=== PATIENT | female | born 1960 | race Caucasian/White ===

== ENCOUNTER → 2017-10-27 | Outpatient (CLI) | payer BC ==
--- NOTE | 2017-10-31 12:21 | USB ---
Reason for exam: additional evaluation requested from prior study. History: Patient is postmenopausal. Family history of breast cancer in sister at age 40. Benign US breast aspiration single LT of the left breast, May 25, 2015. Left Breast Aspiration, July 2012. Physical Findings: Nurse Summary:all soft, movable (nurse kp). US Breast LT Left breast ultrasound includes all four quadrants, the retroareolar region and axilla. Finding demonstrates a 1.7 x 1.3 x 0.9cm oval, lobular, mixed lesion, stable at 7 o'clock (in 2014 it measures 1.3 x 1.2 x 0.6cm, reinformed but with overall stable appearance, benign) and a 0.4 x 0.2 x 0.4cm oval lesion too small to characterize at 8 o'clock. These results were verbally communicated with the patient on 10/31/17. ASSESSMENT: Probably benign, BI-RAD 3 RECOMMENDATION: Follow-up diagnostic mammogram of the left breast in 6 months.
== END | disposition home or self-care (01) ==
LOC: RADUSWWP 14:12
PROVIDERS: ATTEND Family Medicine
DX: R92.8 Other abnormal and inconclusive findings on diagnostic imaging of breast (principal)

== ENCOUNTER → 2018-05-11 | Outpatient (CLI) | payer BC ==
--- NOTE | 2018-05-11 10:22 | MM ---
Reason for exam: follow-up at short interval from prior study. Last mammogram was performed 7 months ago. History: Patient is postmenopausal. Family history of breast cancer in sister at age 40. Benign US breast aspiration single LT of the left breast, May 25, 2015. Left Breast Aspiration, July 2012. Physical Findings: Nurse Summary: 1cm nodule in the left breast at 6-7 o'clock (nurse kp). MG 3D Diag Mammo W/Cad LT CC and MLO view(s) were taken of the left breast. Prior study comparison: October 03, 2017, mammogram, performed at [facility]. December 01, 2015, left breast MG diagnostic mammo LT w CAD. The breast tissue is heterogeneously dense. This may lower the sensitivity of mammography. No suspicious calcifications are seen. Previous mammotome biopsy in the left breast. Lobulated lesion has been sampled previously 7 o'clock position. These results were verbally communicated with the patient and result sheet given to the patient on 05/11/18. ASSESSMENT: Benign, BI-RAD 2 RECOMMENDATION: Routine screening mammogram of both breasts in 6 months. Back on schedule. Manage patient on a clinical basis.
== END ==
LOC: RADMAMWWP 07:56
PROVIDERS: ATTEND Family Medicine
DX: R92.8 Other abnormal and inconclusive findings on diagnostic imaging of breast (principal)
CPT/HCPCS: 77061; 77065

== ENCOUNTER → 2018-11-20 | Outpatient (CLI) | payer BC ==
--- NOTE | 2018-11-20 11:46 | MM ---
Reason for exam: clinical finding. Last mammogram was performed 6 months ago. History: Patient is postmenopausal. Family history of breast cancer in sister at age 40. Benign US breast aspiration single LT of the left breast, May 25, 2015. Left Breast Aspiration, July 2012. Indicated problem(s): lump or thickening in the left breast. Physical Findings: Nurse Summary: 1cm nodule in the left breast at 7 o'clock (nurse mj). MG 3D Diag Mammo W/Cad ALEJO Bilateral CC and MLO view(s) were taken. Prior study comparison: May 11, 2018, left breast MG 3d diag mammo w/cad LT. October 03, 2017, mammogram, performed at [facility]. The breast tissue is heterogeneously dense. This may lower the sensitivity of mammography. No suspicious calcifications are seen. Nodule left breast. Ultrasound recommended. These results were verbally communicated with the patient and result sheet given to the patient on 11/20/18. ASSESSMENT: Incomplete: need additional imaging evaluation, BI-RAD 0 RECOMMENDATION: Ultrasound of the left breast.
--- NOTE | 2018-11-20 11:47 | USB ---
Reason for exam: additional evaluation requested from abnormal screening. History: Patient is postmenopausal. Family history of breast cancer in sister at age 40. Benign US breast aspiration single LT of the left breast, May 25, 2015. Left Breast Aspiration, July 2012. US Breast Limited LT Left limited breast ultrasound including focal area of concern, retroareolar and axilla demonstrates a 1.2 x 0.9 x 1.5cm oval, mixed lesion at 7 o'clock previously aspirated and a 0.5 x 0.4 x 0.5cm oval, cystic lesion at 9 o'clock. These results were verbally communicated with the patient and result sheet given to the patient on 11/20/18. ASSESSMENT: Benign, BI-RAD 2 RECOMMENDATION: Routine screening mammogram of both breasts in 1 year. Manage patient on a clinical basis.
== END | disposition home or self-care (01) ==
LOC: RADMAMWWP 07:25
PROVIDERS: ATTEND Family Medicine
DX: N63.20 Unspecified lump in the left breast, unspecified quadrant (principal); R92.8 Other abnormal and inconclusive findings on diagnostic imaging of breast
CPT/HCPCS: 77062; 77066

== ENCOUNTER → 2018-12-25 | Outpatient (CLI) | payer BC ==
[2018-12-25 16:02] VITALS: BP 93/61; PULSE 82; RESP 16; TEMP 97.8; BMI 23.6
--- NOTE | 2018-12-25 16:33 | P.GSHP ---
History of Present Illness H&P Date: 12/25/18 Chief Complaint: mammogram nodule left breast, ultrasound cyst The patient is a 58-year-old white female who presents with a complaint of a nodule in her left breast. This is probably for the patient. She states that it has been noted on several mammograms. The patient had her most recent mammogram and 33993. This revealed heterogeneously dense breast tissue with no suspicious calcifications seen. A nodule in the left breast was noted. An ultrasound was recommended. An ultrasound was performed on 5to19. This revealed a 1.2 cm x 1.5 cm mixed lesion at 7:00 previously aspirated, and a 0.5- 0.5 cm lesion at 9:00 this was felt to be benign BIRADS 2 and repeat mammogram in 1 year's time was recommended. The patient states that it was last aspirated many years ago, and it recurred about two years ago. The patient feels it has increased in size. The patient drinks several cups of coffee per day and several cups of tea per day. She does not drink pop. The patient does not smoke and is not exposed to secondhand smoke. The patient does not eat chocolate on a regular basis. The patient does not take any hormones. The patient has no history of any pain in her breast no trauma and no infection in her breast. She has no other nodules of concern in her breast. This lesion is located in the left breast at approximately 7:00. Family History: 1. sister: Breast cancer in her 40's, doing well had a mastectomy and chemotherapy 2. maternal grandmother: lung 3. aunt maternal : lung Hormonal history: Menarche:11 , first at 15, breast fed: no menopause: hysterectomy at 47, done for bleeding, took both ovaries BCP: none hormones: none surgical history: 1. Total abdominal hysterectomy 2. Bladder suspension 3. Right wrist and shoulder surgery Medical history: 1. HTN Social History: smoke: none alcohol: wine occasional drugs: none - Constitutional Constitutional: Reports sweats, Denies chills, Denies fever - EENT Comment: wears glasses Eyes: denies blurred vision, denies pain Ears: bilateral: decreased hearing, deny: tinnitus Ears, nose, mouth and throat: Reports headache, Denies sore throat - Breasts Breasts: bilateral: as per HPI - Cardiovascular Cardiovascular: Reports high blood pressure - Respiratory Respiratory: Denies cough, Denies 7 - Gastrointestinal Gastrointestinal: Denies abdominal pain, Denies diarrhea, Denies nausea, Denies vomiting - Genitourinary (Female) Genitourinary: Denies dysuria, Denies hematuria - Menstruation Menstruation: Reports post hysterectomy - Musculoskeletal Comment: right wrist shattered, ? needs knee surgery left side - Integumentary Integumentary: Denies pruritus, Denies rash - Neurological Neurological: Denies numbness, Denies weakness - Psychiatric Psychiatric: Denies anxiety, Denies depression - Endocrine Endocrine: Reports fatigue, Denies weight change - Hematologic/Lymphatic Comment: none - Allergic/Immunologic Allergic/Immunologic: Reports seasonal allergies Past Medical History History of Any Multi-Drug Resistant Organisms: None Reported Smoking Status: Former smoker Medications and Allergies Home Medications Medication Instructions Recorded Confirmed Type Iron Ps Complex/B12/Folic Acid 1 each PO DAILY 12/25/18 12/25/18 History [Myferon-150 Forte Capsule] Lisinopril [Zestril] 5 mg PO DAILY 12/25/18 12/25/18 History Temazepam [Restoril] 15 mg PO HS PRN 12/25/18 12/25/18 History Allergies Allergy/AdvReac Type Severity Reaction Status Date / Time No Known Allergies Allergy Unverified 12/25/18 16:02 Surgical - Exam Vital Signs Temp Pulse Resp BP 97.8 F 82 16 93/61 12/25/18 15:55 12/25/18 15:55 12/25/18 15:55 12/25/18 15:55 BMI 23.6 - General well developed, well nourished, no distress - Eyes normal ocular movement - ENT normal pinna, no hearing loss, no congestion - Neck no masses, trachea midline - Respiratory normal expansion, normal respiratory effort, clear to percussion, clear to auscultation - Cardiovascular Rhythm: regular Heart Sounds: normal: S1, S2 - Abdomen Abdomen: soft, non tender, no guarding, no rigid, no rebound - Integumentary normal turgor - Neurologic no disoriented, no combative - Musculoskeletal normal gait, normal posture - Psychiatric oriented to time, oriented to person, oriented to place, speech is normal, memory intact breast exam: right breast: Multiple positional exam no dominant masses or nodules of concern Right axilla: No adenopathy of concern Left breast: Multi-positional exam fibrocystic changes, at the periareolar region at 7:00 there is approximately 1 cm area of nodularity this is slightly firm and does not appear to be a simple cyst Left axilla: No adenopathy of concern Results Mammogram and ultrasound reviewed Assessment and Plan Assessment: Impression: 1. Palpable mass left breast 2. Abnormal ultrasound 3. History of fibrocystic breast changes 4. Family history of breast cancer 5. Family history of cancer 6. Hypertension I discussed with the patient that this may be a cystic lesion but is definitely a palpable area would recommend an FNA of the area. If this fails to resolve would recommend resection in the operating room. The patient concurs. Risk and benefits of the procedure be discussed with the patient. Plan: 1. FNA area of concern in the left breast 2. Surgical resection of the area of concern in the left breast that this is not resolved with FNA Medical management of medical conditions CC: DR. Chandler Hwang
== END ==
LOC: WWCWWP 15:53
PROVIDERS: ATTEND Surgery
DX: Z53.9 Procedure and treatment not carried out, unspecified reason (principal)

== ENCOUNTER → 2019-02-05 | Outpatient (CLI) | payer BC ==
--- NOTE | 2019-02-05 14:51 | P.PCN ---
Date of Procedure: 02/05/19 Preoperative Diagnosis: Increased nodularity left breast periareolar area approximately 7:00 Postoperative Diagnosis: same Procedure(s) Performed: Fine-needle aspiration area of concern in left breast Surgeon: Kenia Markham Pathology: other (breast FNA) Condition: stable Disposition: same day Indications for Procedure: palpable nodule left breast Description of Procedure: The probable area of concern is 7:00 was prepped using alcohol. A 22-gauge needle on a 10 mL syringe was utilized to aspirate the area of concern in the left breast. Approximately 8 mm of turbid fluid was removed. The specimen was sent for cytology. The patient tolerated the procedure in stable condition. She will follow up next week for the results. CC: Dr Hwang
== END ==
DX: Z53.9 Procedure and treatment not carried out, unspecified reason (principal)

== ENCOUNTER → 2019-02-11 | Outpatient (CLI) | payer BC ==
[2019-02-11 13:41] VITALS: BP 144/80; PULSE 55; RESP 16; TEMP 97.7; BMI 23.6
--- NOTE | 2019-02-11 14:09 | P.PN ---
Subjective The patient is a 58-year-old white female who presents with a complaint of a nodule in her left breast. This is probably for the patient. She states that it has been noted on several mammograms. The patient had her most recent mammogram and 25329. This revealed heterogeneously dense breast tissue with no suspicious calcifications seen. A nodule in the left breast was noted. An ultrasound was recommended. An ultrasound was performed on 5to19. This revealed a 1.2 cm x 1.5 cm mixed lesion at 7:00 previously aspirated, and a 0.5- 0.5 cm lesion at 9:00 this was felt to be benign BIRADS 2 and repeat mammogram in 1 year's time was recommended. The patient states that it was last aspirated many years ago, and it recurred about two years ago. The patient feels it has increased in size. The patient drinks several cups of coffee per day and several cups of tea per day. She does not drink pop. The patient does not smoke and is not exposed to secondhand smoke. The patient does not eat chocolate on a regular basis. The patient does not take any hormones. The patient has no history of any pain in her breast no trauma and no infection in her breast. She has no other nodules of concern in her breast. This lesion was located in the left breast at approximately 7:00. She underwent FNA of the increased nodularity in the left breast periareolar region at 7:00 on . Pathology was benign. The patient has had this area aspirated in the past many years ago. At this time the nodularity has not recurred. Family History: 1. sister: Breast cancer in her 40's, doing well had a mastectomy and chemotherapy 2. maternal grandmother: lung 3. aunt maternal : lung Hormonal history: Menarche:11 , first at 15, breast fed: no menopause: hysterectomy at 47, done for bleeding, took both ovaries BCP: none hormones: none surgical history: 1. Total abdominal hysterectomy 2. Bladder suspension 3. Right wrist and shoulder surgery Medical history: 1. HTN Social History: smoke: none alcohol: wine occasional drugs: none - Constitutional Constitutional: Reports sweats, Denies chills, Denies fever - EENT Comment: wears glasses Eyes: denies blurred vision, denies pain Ears: bilateral: decreased hearing, deny: tinnitus Ears, nose, mouth and throat: Reports headache, Denies sore throat - Breasts Breasts: bilateral: as per HPI - Cardiovascular Cardiovascular: Reports high blood pressure - Respiratory Respiratory: Denies cough, Denies 7 - Gastrointestinal Gastrointestinal: Denies abdominal pain, Denies diarrhea, Denies nausea, Denies vomiting - Genitourinary (Female) Genitourinary: Denies dysuria, Denies hematuria - Menstruation Menstruation: Reports post hysterectomy - Musculoskeletal Comment: right wrist shattered, ? needs knee surgery left side - Integumentary Integumentary: Denies pruritus, Denies rash - Neurological Neurological: Denies numbness, Denies weakness - Psychiatric Psychiatric: Denies anxiety, Denies depression - Endocrine Endocrine: Reports fatigue, Denies weight change - Hematologic/Lymphatic Comment: none - Allergic/Immunologic Allergic/Immunologic: Reports seasonal allergies Objective - Vital Signs Vital signs: Vital Signs Temp 97.7 F 02/11/19 13:39 Pulse 55 L 02/11/19 13:39 Resp 16 02/11/19 13:39 BP 144/80 02/11/19 13:39 Pulse Ox 99 02/11/19 13:39 Intake & Output 02/10/19 02/11/19 02/11/19 18:59 06:59 18:59 Weight 70.307 kg - Exam BMI 23.6 - Constitutional General appearance: Present: average body habitus - EENT Eyes: Present: EOMI ENT: Present: hearing grossly normal - Neck Neck: Present: normal ROM - Respiratory Respiratory: bilateral: CTA - Cardiovascular Rhythm: regular Heart sounds: normal: S1, S2 - Integumentary Integumentary: Present: normal turgor - Musculoskeletal Musculoskeletal: Present: gait normal - Psychiatric Psychiatric: Present: A&O x's 3, appropriate affect, intact judgment & insight - Additional findings Additional findings: Left breast: Area of aspiration is slightly ecchymotic Evidence of infection The nodularity has resolved. Assessment and Plan Assessment: Impression: 1. Resolution of palpable mass left breast with aspiration 2. Fibrocystic breast changes 3. Family history of breast cancer 4. Family history of cancer 5. Hypertension Plan: 1. Continue close surveillance of the breast 2. Follow-up for breast exam in 6 months 2. Follow-up sooner if the area recurs Cc: Dr. Chandler Hwang
== END | disposition home or self-care (01) ==
LOC: WWCWWP 13:33
PROVIDERS: ATTEND Surgery
DX: Z53.9 Procedure and treatment not carried out, unspecified reason (principal)

== ENCOUNTER → 2020-01-12 | Outpatient (CLI) | payer BC ==
--- NOTE | 2020-01-14 08:50 | MM ---
Reason for exam: screening (asymptomatic). Last mammogram was performed 1 year and 2 months ago. History: Patient is postmenopausal. Family history of breast cancer in sister at age 40. Benign US breast aspiration single LT of the left breast, May 25, 2015. Left Breast Aspiration, July 2012. Physical Findings: A clinical breast exam by your physician is recommended on an annual basis and results should be correlated with mammographic findings. MG 3D Screening Mammo W/Cad Bilateral CC and MLO view(s) were taken. Prior study comparison: November 20, 2018, bilateral MG 3d diag mammo w/cad ALEJO. May 11, 2018, left breast MG 3d diag mammo w/cad LT. The breast tissue is heterogeneously dense. This may lower the sensitivity of mammography. Previous mammotome biopsy in the left breast. There is chronic nodularity in the left breast. No significant changes when compared with prior studies. ASSESSMENT: Negative, BI-RAD 1 RECOMMENDATION: Routine screening mammogram of both breasts in 1 year.
== END | disposition home or self-care (01) ==
LOC: RADMAMWWP 14:00
PROVIDERS: ATTEND Surgery
DX: Z12.31 Encounter for screening mammogram for malignant neoplasm of breast (principal)
CPT/HCPCS: 77063; 77067

== ENCOUNTER → 2020-01-21 | Outpatient (CLI) | payer BC ==
[2020-01-21 11:27] VITALS: BP 129/61; PULSE 66; RESP 18; TEMP 98.5
--- NOTE | 2020-01-21 11:53 | P.PN ---
Subjective Progress Note Date: 01/21/20 Principal diagnosis: fibrocystic breast changes Mary Kate is a 59-year-old white female who was initially seen several years ago at which time she had some cyst aspirated in her breast. Most recently she was noted to have a cystic lesion in the 7 o'clock position of the left breast. She underwent an FNA of this area on 720 619. Pathology was benign. This area was not palpable immediately after the FNA however it did return and is persistent. It is not painful. The patient does not note any other lumps masses or nodules in her breasts. Her most recent mammogram was on 7119 this was a bilateral mammogram which was felt to be benign BIRADS 1. Was scheduled for excision of the palpable lesion at 7:00 in the left breast prior to the pain and make but this was canceled and has now been rescheduled. She has not had any recent trauma or infection in either breast. No nipple discharge or skin changes of concern. Family History: 1. sister: Breast cancer in her 40's, doing well had a mastectomy and chemotherapy 2. maternal grandmother: lung 3. aunt maternal : lung Hormonal history: Menarche:11 , first at 15, breast fed: no menopause: hysterectomy at 47, done for bleeding, took both ovaries BCP: none hormones: none Surgical history: 1. Total abdominal hysterectomy 2. Bladder suspension 3. Right wrist and shoulder surgery Medical history: HTN in past Social History: smoke: none alcohol: wine occasional drugs: none - Constitutional Constitutional: Reports sweats, Denies chills, Denies fever - EENT Comment: wears glasses Eyes: denies blurred vision, denies pain Ears: bilateral: decreased hearing, deny: tinnitus Ears, nose, mouth and throat: Reports headache, Denies sore throat - Breasts Breasts: bilateral: as per HPI - Cardiovascular Cardiovascular: Reports high blood pressure improved off medication - Respiratory Respiratory: Denies cough, CPAP at night - Gastrointestinal Gastrointestinal: Denies abdominal pain, Denies diarrhea, Denies nausea, Denies vomiting - Genitourinary (Female) Genitourinary: Denies dysuria, Denies hematuria - Menstruation Menstruation: Reports post hysterectomy - Musculoskeletal Comment: arthritis right wrist shattered, ? needs knee surgery left side - Integumentary Integumentary: Denies pruritus, Denies rash - Neurological Neurological: Denies numbness, Denies weakness - Psychiatric Psychiatric: Denies anxiety, Denies depression - Endocrine Endocrine: Reports fatigue, Denies weight change - Hematologic/Lymphatic Comment: none - Allergic/Immunologic Allergic/Immunologic: Reports seasonal allergies Objective - Vital Signs Vital signs: Vital Signs Temp 98.5 F 01/21/20 11:24 Pulse 66 01/21/20 11:24 Resp 18 01/21/20 11:24 BP 129/61 01/21/20 11:24 Pulse Ox 98 01/21/20 11:24 Intake & Output 01/20/20 01/21/20 01/21/20 18:59 06:59 18:59 Weight 68.492 kg - Exam BMI 24.2 - Constitutional General appearance: Present: average body habitus - EENT Eyes: Present: EOMI ENT: Present: hearing grossly normal - Respiratory Respiratory: bilateral: CTA - Cardiovascular Rhythm: regular Heart sounds: normal: S1, S2 - Gastrointestinal General gastrointestinal: Present: normal bowel sounds, soft - Integumentary Integumentary: Present: normal turgor - Musculoskeletal Musculoskeletal: Present: gait normal - Psychiatric Psychiatric: Present: A&O x's 3, appropriate affect, intact judgment & insight - Additional findings Additional findings: Breast Exam: Bra: 38C inspection: ptosis grade 2/3 bilateral Palpation: right breast: Multiple transitional exam fibrocystic changes, no dominant masses or nodules of concern Right axilla: No adenopathy of concern Left breast: Multiple positional exam fibrocystic changes, at the 7 o'clock position just inferior to the areolar is approximately an 8 mm area of nodularity which has been aspirated/biopsied in the past and continues to recur Left axilla: No adenopathy of concern Assessment and Plan Assessment: Impression: 1. nodule left breast at 7:00/prior FNA benign 2. Persistent breast changes 3. Bilateral mammogram 7120 negative BIRADS 1 Plan: 1. Excision of the lesion in the left breast at 7:00 as this is recurrent 2. Bilateral mammogram in 1 year CC: Dr. Hwang encounter 15 minutes, > 50% of time in planning and counselling
== END | disposition home or self-care (01) ==
LOC: WWCWWP 11:01
PROVIDERS: ATTEND Surgery
DX: Z53.9 Procedure and treatment not carried out, unspecified reason (principal)

== ENCOUNTER → 2020-04-06 | Outpatient (CLI) | payer BC ==
[2020-04-06 13:56] VITALS: BP 136/77; PULSE 63; RESP 16; TEMP 98.1
--- NOTE | 2020-04-06 14:17 | P.GSHP ---
History of Present Illness H&P Date: 04/06/20 Chief Complaint: cyst left breast Mary Kate is a 59-year-old white female who was initially seen several years ago at which time she had some cyst aspirated in her breast. Most recently she was noted to have a cystic lesion in the 7 o'clock position of the left breast. She underwent an FNA of this area on . Pathology was benign. This area was not palpable immediately after the FNA however it did return and is persistent. It is not painful. The patient does not note any other lumps masses or nodules in her breasts. Her most recent mammogram was on 7119 this was a bilateral mammogram which was felt to be benign BIRADS 1. She has not had any recent trauma or infection in either breast. No nipple discharge or skin changes of concern. Family History: 1. sister: Breast cancer in her 40's, doing well had a mastectomy and chemotherapy 2. maternal grandmother: lung 3. aunt maternal : lung Hormonal history: Menarche:11 , first at 15, breast fed: no menopause: hysterectomy at 47, done for bleeding, took both ovaries BCP: none hormones: none Surgical history: 1. Total abdominal hysterectomy 2. Bladder suspension 3. Right wrist and shoulder surgery Medical history: HTN in past Social History: smoke: none alcohol: wine occasional drugs: none - Constitutional Constitutional: Denies chills, Denies fever - EENT Eyes: denies blurred vision, denies pain Ears: deny: decreased hearing, tinnitus Ears, nose, mouth and throat: Denies headache, Denies sore throat - Breasts Breasts: bilateral: as per HPI - Cardiovascular Cardiovascular: Denies chest pain, Denies shortness of breath - Respiratory Respiratory: Denies cough, Denies 7 - Gastrointestinal Gastrointestinal: Denies abdominal pain, Denies diarrhea, Denies nausea, Denies vomiting - Genitourinary (Female) Genitourinary: Denies dysuria, Denies hematuria - Menstruation Menstruation: Reports post hysterectomy - Musculoskeletal Musculoskeletal: Denies myalgias - Integumentary Integumentary: Denies pruritus, Denies rash - Neurological Neurological: Denies numbness, Denies weakness - Psychiatric Psychiatric: Denies anxiety, Denies depression - Endocrine Endocrine: Denies fatigue, Denies weight change - Hematologic/Lymphatic Comment: none - Allergic/Immunologic Allergic/Immunologic: Reports seasonal allergies Past Medical History Past Medical History: Hypertension Additional Past Medical History / Comment(s): controlled hypertension; History of Any Multi-Drug Resistant Organisms: None Reported Past Surgical History: Hysterectomy Additional Past Surgical History / Comment(s): bladder suspension; right wrist and should surgery; Past Anesthesia/Blood Transfusion Reactions: No Reported Reaction Past Psychological History: No Psychological Hx Reported Smoking Status: Former smoker Past Alcohol Use History: Occasional Additional Past Alcohol Use History / Comment(s): Patient started smoking in 1972 at age 13, quit in 1999 Past Drug Use History: None Reported Medications and Allergies Home Medications Medication Instructions Recorded Confirmed Type Iron Ps Complex/B12/Folic Acid 1 each PO QAM 12/25/18 04/06/20 History [Myferon-150 Forte Capsule] Temazepam [Restoril] 15 mg PO HS 12/25/18 04/06/20 History Cholecalciferol (Vitamin D3) 2,000 unit PO QAM 02/05/19 04/06/20 History [Vitamin D3] Cyanocobalamin (Vitamin B-12) 1,000 mcg PO QAM 02/11/19 04/06/20 History [Vitamin B-12] Allergies Allergy/AdvReac Type Severity Reaction Status Date / Time No Known Allergies Allergy Unverified 04/06/20 13:50 Surgical - Exam Vital Signs Temp Pulse Resp BP Pulse Ox 98.1 F 63 16 136/77 100 04/06/20 13:52 04/06/20 13:52 04/06/20 13:52 04/06/20 13:52 04/06/20 13:52 BMI 23.6 - General well developed, well nourished, no distress - Eyes normal ocular movement - ENT no hearing loss, no congestion - Neck trachea midline - Respiratory normal respiratory effort, clear to auscultation - Cardiovascular Rhythm: regular Heart Sounds: normal: S1, S2 - Abdomen Abdomen: soft, non tender, no guarding, no rigid, no rebound - Integumentary normal turgor - Musculoskeletal normal gait - Psychiatric oriented to time, oriented to person, oriented to place, speech is normal, memory intact breast exm: Bra 38C inspection: grade 2 ptosis bilateral Palpation: Right breast: Multi-positional exam fibrocystic changes, no dominant masses or nodules of concern right axilla: No adenopathy of concern left breast: Multiple positional exam fibrocystic changes, at the 7 o'clock posi tion there is a small approximately 8-10 mm area of nodularity which is the recurrent lesion after aspiration that is palpable left axilla: no adenopathy of concern Results Bilateral mammogram reviewed from 7120 Assessment and Plan Assessment: Impression: 1. Fibrocystic breast changes 2. palpable nodule 7 o'clock position left breast aspirated and pathology benign however recurrent Plan: 1. Excision of nodule left breast in the operating room Risk and benefits of the procedure discussed with the patient. These include bleeding infection reaction to the anesthetic patient understands and wishes to proceed. She also understands that there will be some scar there forms after the excision and she may have a step-off deformity. Cc: Dr. Hwang encounter 15 minutes, > 50% of time in planning and counselling
== END | disposition home or self-care (01) ==
LOC: WWCWWP 13:26
PROVIDERS: ATTEND Surgery
DX: Z53.9 Procedure and treatment not carried out, unspecified reason (principal)

== ENCOUNTER 2020-04-11 07:13 | Day surgery (SDC) | payer BC ==
[2020-04-07 11:18] VITALS: BMI 23.6
[~2020-04-11 07:13] MED LIST: DEXAMETHASONE SOD PHOSPHATE 10 MG/ML 1 ML VIAL IV ONE; HEPARIN SODIUM,PORCINE 5,000 UNIT/ML 1 ML VIAL SQ ONE; HYDROmorphone 0.5 MG/0.5 ML SYRINGE IVP PRN; LACTATED RINGERS 1,000 ML IV SCH; LIDOCAINE 1% (10MG/ML) FOR IV START INTRADERMA PRN; MIDAZOLAM 2 MG/2 ML VIAL IV PRN; ONDANSETRON 4 MG/2 ML VIAL IVP ONE
[2020-04-11] MEDS ORDERED: LIDOCAINE 1% INJ 10MG/ML (20 ML MDV) ONE (07:26)
[2020-04-11] MEDS ORDERED: PROPOFOL 10 MG/ML 20 ML VIAL IV ONE (07:26)
[2020-04-11] MEDS ORDERED: KETAMINE 10 MG/ML 20 ML VIAL ONE (07:26)
[2020-04-11] MEDS ORDERED: fentaNYL (PF) 50 MCG/ML 2 ML AMP ONE (07:26)
[2020-04-11] MEDS ORDERED: MIDAZOLAM 2 MG/2 ML VIAL ONE (07:26)
[2020-04-11 07:35] VITALS: TEMP 97.1
[2020-04-11] MEDS ORDERED: LIDOCAINE 1% INJ 10MG/ML (20 ML MDV) SQ ONE ×4 (08:42→08:53)
[2020-04-11] MEDS ORDERED: LACTATED RINGERS 1,000 ML IV ONE (09:21)
--- NOTE | 2020-04-11 09:31 | P.OP ---
Date of Procedure: 04/11/20 Preoperative Diagnosis: Recurrent Nodule left breast/FNA benign Postoperative Diagnosis: Same Procedure(s) Performed: Excision recurrent nodule left breast Anesthesia: MAC, local Surgeon: Kenia Markham Estimated Blood Loss (ml): 10 IV fluids (ml): 650 Pathology: other (Breast tissue) Condition: stable Disposition: same day Indications for Procedure: Recurrent nodule left breast Operative Findings: Blood filled cystic lesion at 7:00 left breast Description of Procedure: The patient is a 59-year-old white female who noted a nodule in her left breast. An FNA was performed which was benign however the recurrent and was very worrisome to the patient. The patient wishes this area to be excised. The patient was taken to the operating room and following sedation the left breast was prepped using Betadine. There was draped in a sterile fashion. Circumareolar incision at 7:00 was performed. The area of palpable abnormality was identified. This was was consistent with a blood filled cystic lesion. Wide excision was performed. Hemostasis was attained using electrocautery device. Titanium clips were placed to jana the area. The deep tissues were closed using 3-0 Vicryl suture. The skin was closed using 4-0 Monocryl. The patient tolerated the procedure in stable condition. Surgical glue was applied to the skin. The specimen was sent to pathology after was painted. All inst rument and sponge counts were correct at the end of the case. The patient tolerated procedure in stable condition.
--- NOTE | 2020-04-11 09:33 | P.DS ---
Providers Attending physician: Kenia Markham Primary care physician: Chandler Hwang Plan - Discharge Summary Discharge Rx Participant: Yes New Discharge Prescriptions: No Action Temazepam [Restoril] 15 mg PO HS Iron Ps Complex/B12/Folic Acid [Myferon-150 Forte Capsule] 1 each PO QAM Cholecalciferol (Vitamin D3) [Vitamin D3] 2,000 unit PO QAM Cyanocobalamin (Vitamin B-12) [Vitamin B-12] 1,000 mcg PO QAM Discharge Medication List Iron Ps Complex/B12/Folic Acid [Myferon-150 Forte Capsule] 1 each PO QAM 12/25/18 [History] Temazepam [Restoril] 15 mg PO HS 12/25/18 [History] Cholecalciferol (Vitamin D3) [Vitamin D3] 2,000 unit PO QAM 02/05/19 [History] Cyanocobalamin (Vitamin B-12) [Vitamin B-12] 1,000 mcg PO QAM 02/11/19 [History] Follow up Appointment(s)/Referral(s): Kenia Markham MD [STAFF PHYSICIAN] - 1 Week Activity/Diet/Wound Care/Special Instructions: do not drive for 24 hours after discharge may shower after 48 hours wear bra at all times Discharge Disposition: HOME SELF-CARE
[2020-04-11 10:13] VITALS: PULSE 61; RESP 18
[2020-04-11 10:15] VITALS: BP 149/76
== END 2020-04-11 10:10 | disposition home or self-care (01) ==
LOC: OR 07:13
PROVIDERS: ATTEND Surgery
DX: N60.02 Solitary cyst of left breast (principal); Z80.3 Family history of malignant neoplasm of breast; Z80.1 Family history of malignant neoplasm of trachea, bronchus and lung; I10 Essential (primary) hypertension; Z87.891 Personal history of nicotine dependence; G47.33 Obstructive sleep apnea (adult) (pediatric); Z99.89 Dependence on other enabling machines and devices; Z90.710 Acquired absence of both cervix and uterus; Z98.890 Other specified postprocedural states; Z79.899 Other long term (current) drug therapy
CPT/HCPCS: 88307; 19120; J2250; J1644; J1100; J0690; J2405; J2001; J3010; J2704

== ENCOUNTER → 2020-04-20 | Outpatient (CLI) | payer BC ==
[2020-04-20 12:41] VITALS: BP 118/73; PULSE 70; RESP 12; TEMP 98.1
--- NOTE | 2020-04-20 12:58 | P.PN ---
Progress Note - Text Progress Note Date: 04/20/20 Ping is status post left breast biopsy and [id number]. Pathology was benign. She is doing well without complaints. Physical exam: Incision: Clean and dry Impression/Plan: 1. Patient status post left breast biopsy for palpable lesion. Pathology benign fibrocystic changes. Patient is going to follow up in 6 months with repeat left breast mammogram CC: Dr. Hwang
== END | disposition home or self-care (01) ==
LOC: WWCWWP 12:24
PROVIDERS: ATTEND Surgery
DX: Z53.9 Procedure and treatment not carried out, unspecified reason (principal)

== ENCOUNTER → 2020-10-09 | Outpatient (CLI) | payer BC ==
--- NOTE | 2020-10-11 11:56 | MM ---
Reason for exam: follow-up at short interval from prior study. Last mammogram was performed 9 months ago. History: Patient is postmenopausal. Family history of breast cancer in sister at age 40. Excisional biopsy of the left breast, 2020. Benign US breast aspiration single LT of the left breast, May 25, 2015. Left Breast Aspiration, July 2012. Physical Findings: Nurse did not find any significant physical abnormalities on exam. MG 3D Diag Mammo W/Cad LT CC and MLO view(s) were taken of the left breast. Prior study comparison: January 12, 2020, bilateral MG 3d screening mammo w/cad. November 20, 2018, bilateral MG 3d diag mammo w/cad [facility]. The breast tissue is heterogeneously dense. This may lower the sensitivity of mammography. There is chronic nodularity in the left breast anteriorly and inferiorly. New post surgical change left breast. Central focal asymmetry is new but likely post surgical change. Short interval follow up recommended. These results were verbally communicated with the patient and result sheet given to the patient on 10/09/20. ASSESSMENT: Probably benign, BI-RAD 3 RECOMMENDATION: Follow-up diagnostic mammogram of both breasts in 4 months.
== END | disposition home or self-care (01) ==
LOC: RADMAMWWP 13:21
PROVIDERS: ATTEND Surgery
DX: R92.8 Other abnormal and inconclusive findings on diagnostic imaging of breast (principal)
CPT/HCPCS: 77061; 77065

== ENCOUNTER → 2021-03-13 | Outpatient (CLI) | payer BC ==
--- NOTE | 2021-03-13 10:59 | MM ---
Reason for exam: additional evaluation requested from prior study. Last mammogram was performed 5 months ago. History: Patient is postmenopausal. Family history of breast cancer in sister at age 40. Excisional biopsy of the left breast, 2020. Benign US breast aspiration single LT of the left breast, May 25, 2015. Left Breast Aspiration, July 2012. Physical Findings: Nurse did not find any significant physical abnormalities on exam. MG 3D Diag Mammo W/Cad [facility] Bilateral CC, MLO, and XCCL view(s) were taken. Prior study comparison: October 09, 2020, left breast MG 3d diag mammo w/cad LT. January 12, 2020, bilateral MG 3d screening mammo w/cad. The breast tissue is heterogeneously dense. This may lower the sensitivity of mammography. No significant new findings when compared with previous films. These results were verbally communicated with the patient and result sheet given to the patient on 03/13/21. ASSESSMENT: Benign, BI-RAD 2 RECOMMENDATION: Routine screening mammogram of both breasts in 1 year.
== END | disposition home or self-care (01) ==
LOC: RADMAMWWP 08:44
PROVIDERS: ATTEND Surgery
DX: R92.2 Inconclusive mammogram (principal); Z78.0 Asymptomatic menopausal state; Z80.3 Family history of malignant neoplasm of breast
CPT/HCPCS: 77062; 77066

== ENCOUNTER → 2021-03-22 | Outpatient (CLI) | payer BC ==
--- NOTE | 2020-11-01 10:51 | P.PN ---
Progress Note - Text Progress Note Date: 11/01/20 The patient has contacted us that she is positive for COVID. I have called her with the results of her mammogram performed on . This was probably benign BIRADS 3 of the left breast with findings felt to be most likely related to postsurgical changes. Follow-up in 4 months time was recommended. The patient at this time is not complaining of any new changes lumps masses or nodules in her breast. She is invited to come and see us after recovery from COVID, however if she wishes we have discussed that she could have a repeat bilateral mammogram in 4 months with physician exam at that time. She understands that if she notes any changes in her breasts would like to see her sooner.
[2021-03-22 11:33] VITALS: BP 141/64; PULSE 67; RESP 16; TEMP 97.9
--- NOTE | 2021-03-22 11:36 | P.PN ---
Subjective Progress Note Date: 03/22/21 Principal diagnosis: fibrocytsic breast changes Mary Kate is a 60 year old white female seen for fiborcystic breast changes. She had a bilateral mammogram on 03-13-21 which was benign BIRAD 2. At this time she does not complain of any new lumps masses or nodules in either breast. She is not complaining of any nipple discharge or skin changes. She does not complain of any pain in her breast. Family History: 1. sister: Breast cancer in her 40's, doing well had a mastectomy and chemotherapy 2. maternal grandmother: lung 3. aunt maternal : lung Hormonal history: Menarche:11 , first at 15, breast fed: no menopause: hysterectomy at 47, done for bleeding, took both ovaries BCP: none hormones: none Surgical history: 1. Total abdominal hysterectomy 2. Bladder suspension 3. Right wrist and shoulder surgery 4. left breast resection in the OR Medical history: low blood pressure had COVID Social History: smoke: none alcohol: wine occasional drugs: none - Constitutional Constitutional: Denies chills, Denies fever - EENT Eyes: denies blurred vision, denies pain Ears: deny: decreased hearing, tinnitus Ears, nose, mouth and throat: Denies headache, Denies sore throat - Breasts Breasts: bilateral: as per HPI - Cardiovascular Cardiovascular: Denies chest pain, Denies shortness of breath - Respiratory Respiratory: Denies cough - Gastrointestinal Gastrointestinal: Denies abdominal pain, Denies diarrhea, Denies nausea, Denies vomiting - Genitourinary (Female) Genitourinary: Denies dysuria, Denies hematuria - Menstruation Menstruation: Reports post hysterectomy - Musculoskeletal Musculoskeletal: Denies myalgias - Integumentary Integumentary: Denies pruritus, Denies rash - Neurological Neurological: Denies numbness, Denies weakness - Psychiatric Psychiatric: Denies anxiety, Denies depression - Endocrine Endocrine: Denies fatigue, Denies weight change - Hematologic/Lymphatic Comment: none - Allergic/Immunologic Allergic/Immunologic: Reports seasonal allergies Objective - Exam BMI 25.1 - Constitutional General appearance: Present: cooperative - EENT Eyes: Present: EOMI ENT: Present: hearing grossly normal - Neck Neck: Present: normal ROM - Respiratory Respiratory: bilateral: CTA - Cardiovascular Heart sounds: normal: S1, S2 - Gastrointestinal General gastrointestinal: Present: soft - Integumentary Integumentary: Present: normal turgor - Musculoskeletal Musculoskeletal: Present: gait normal - Psychiatric Psychiatric: Present: A&O x's 3, appropriate affect, intact judgment & insight - Additional findings Additional findings: Breast Exam: BRA: 38C inspection: Bilateral grade 2 ptosis Palpation: Right breast: Multi-positional exam fibrocystic changes no dominant masses or nodules of concern, in the areolar region there is a small plaque had which is not ready for any drainage at this time Right axilla: No adenopathy of concern Left breast: Multi-positional exam fibrocystic changes no dominant masses or nodules of concern Left axilla: No adenopathy of concern Assessment and Plan Assessment: Impression: low blood pressure had COVID/ had vaccine fibrocystic breast changes Plan: 1. Bilateral mammogram in 1 year with physician exam at that time CC: DR. Hwang
== END ==
LOC: WWCWWP 10:49
PROVIDERS: ATTEND Surgery
DX: N60.11 Diffuse cystic mastopathy of right breast (principal); I95.9 Hypotension, unspecified; Z86.16 Personal history of COVID-19; Z87.891 Personal history of nicotine dependence

== ENCOUNTER → 2022-03-21 | Outpatient (CLI) | payer BC ==
--- NOTE | 2022-03-29 17:30 | MM ---
Reason for Exam: Screening (asymptomatic). Last mammogram was performed 1 year(s) and 1 month(s) ago. Patient History: Menarche at age 11. First Full-Term at age 15. Left ovary removed at age 47. Right ovary removed at age 47. Hysterectomy at age 47. Postmenopausal. 07/2012, Cyst Aspiration. 2020, Excisional Biopsy on the Left side. 05/25/2015, Benign Cyst Aspiration on the left side. Sister had breast cancer, age 40. Risk Values: Mariya 5 year model risk: 3.5%. NCI Lifetime model risk: 14.2%. Prior Study Comparison: 01/12/2020 Bilateral Screening Mammogram, [facility]. 10/09/2020 Left Diagnostic Mammogram, [facility]. 03/13/2021 Bilateral Diagnostic Mammogram, [facility]. Tissue Density: The breast tissue is heterogeneously dense. This may lower the sensitivity of mammography. Findings: Analyzed By CAD. There is no suspicious group of microcalcifications or new suspicious mass in either breast. Surgical changes in the left breast. Overall Assessment: Benign, BI-RAD 2 Management: Screening Mammogram of both breasts in 1 year. A clinical breast exam by your physician is recommended on an annual basis and results should be correlated with mammographic findings. Electronically signed and approved by: Murphy Kumar DO
== END | disposition home or self-care (01) ==
LOC: RADMAMWWP 13:14
PROVIDERS: ATTEND Surgery
DX: Z12.31 Encounter for screening mammogram for malignant neoplasm of breast (principal); Z78.0 Asymptomatic menopausal state; Z98.890 Other specified postprocedural states; Z80.3 Family history of malignant neoplasm of breast
CPT/HCPCS: 77063; 77067

== ENCOUNTER → 2022-04-12 | Outpatient (CLI) | payer BC ==
[2022-04-12 12:42] VITALS: BP 143/70; PULSE 70; RESP 17; TEMP 97.4
--- NOTE | 2022-04-12 12:54 | P.PN ---
Subjective Progress Note Date: 04/12/22 Principal diagnosis: fibrocystic breast changes fibrocytsic breast changes Mary Kate is a 60 year old white female seen for fiborcystic breast changes. She had a bilateral mammogram on 03-21-22 which was benign BIRAD 2. At this time she does not complain of any new lumps masses or nodules in either breast. She is not complaining of any nipple discharge or skin changes. She does not complain of any pain in her breast. Mariya Risk evaluation: 5 year risk: 3.5% lifetime risk of breast cancer: 14.2% We have discussed chemoprevention and she has declined at this time. Family History: 1. sister: Breast cancer in her 40's, doing well had a mastectomy and chemotherapy 2. maternal grandmother: lung 3. aunt maternal : lung Hormonal history: Menarche:11 , first at 15, breast fed: no menopause: hysterectomy at 47, done for bleeding, took both ovaries BCP: none hormones: none Surgical history: 1. Total abdominal hysterectomy 2. Bladder suspension 3. Right wrist and shoulder surgery 4. left breast resection in the OR Medical history: low blood pressure had COVID Social History: smoke: none alcohol: wine occasional drugs: none - Constitutional Constitutional: Denies chills, Denies fever - EENT Eyes: denies blurred vision, denies pain Ears: deny: decreased hearing, tinnitus Ears, nose, mouth and throat: Denies headache, Denies sore throat - Breasts Breasts: bilateral: as per HPI - Cardiovascular Cardiovascular: Denies chest pain, Denies shortness of breath - Respiratory Respiratory: Denies cough - Gastrointestinal Gastrointestinal: Denies abdominal pain, Denies diarrhea, Denies nausea, Denies vomiting - Genitourinary (Female) Genitourinary: Denies dysuria, Denies hematuria - Menstruation Menstruation: Reports post hysterectomy - Musculoskeletal Musculoskeletal: Denies myalgias - Integumentary Integumentary: Denies pruritus, Denies rash - Neurological Neurological: Denies numbness, Denies weakness - Psychiatric Psychiatric: Denies anxiety, Denies depression - Endocrine Endocrine: Denies fatigue, Denies weight change - Hematologic/Lymphatic Comment: none - Allergic/Immunologic Allergic/Immunologic: Reports seasonal allergies Objective - Vital Signs Vital signs: Vital Signs Temp 97.4 F L 04/12/22 12:41 Pulse 70 04/12/22 12:41 Resp 17 04/12/22 12:41 BP 143/70 04/12/22 12:41 Pulse Ox 97 04/12/22 12:41 FiO2 Intake & Output 04/11/22 04/12/22 04/12/22 18:59 06:59 18:59 Weight 72.575 kg - Constitutional General appearance: Present: cooperative - EENT Eyes: Present: EOMI ENT: Present: hearing grossly normal - Neck Neck: Present: normal ROM - Respiratory Respiratory: bilateral: CTA - Cardiovascular Rhythm: regular Heart sounds: normal: S1, S2 - Gastrointestinal General gastrointestinal: Present: soft - Integumentary Integumentary: Present: normal turgor - Musculoskeletal Musculoskeletal: Present: gait normal - Psychiatric Psychiatric: Present: A&O x's 3, appropriate affect, intact judgment & insight - Additional findings Additional findings: Breast Exam: BRA: 38C inspection: Bilateral grade 2 ptosis Palpation: Right breast: Multi-positional exam fibrocystic changes no dominant masses or nodules of concern, in the areolar region there is a small plaque had which is not ready for any drainage at this time Right axilla: No adenopathy of concern Left breast: Multi-positional exam fibrocystic changes no dominant masses or nodules of concern Left axilla: No adenopathy of concern Assessment and Plan Assessment: Impression: high risk breast cancer fibrocystic breast changes bilateral mammogram 03-21-22 BIRAD 2 Plan: bilateral mammogram in on year patient to call sooner any questions or concerns CC: Dr. Hwang
== END | disposition home or self-care (01) ==
LOC: WWCWWP 12:27
PROVIDERS: ATTEND Surgery
DX: Z53.9 Procedure and treatment not carried out, unspecified reason (principal)

== ENCOUNTER → 2023-06-25 | Outpatient (CLI) | payer BC ==
--- NOTE | 2023-06-26 09:50 | MM ---
Reason for Exam: Screening (asymptomatic). Last mammogram was performed 1 year(s) and 3 month(s) ago. Patient History: Menarche at age 11. First Full-Term at age 15. Left ovary removed at age 47. Right ovary removed at age 47. Hysterectomy at age 47. Postmenopausal. 07/2012, Cyst Aspiration. 2020, Excisional Biopsy on the Left side. 05/25/2015, Benign Cyst Aspiration on the left side. Sister had breast cancer, age 40. Risk Values: Mariya 5 year model risk: 3.6%. NCI Lifetime model risk: 13.3%. Prior Study Comparison: 10/09/2020 Left Diagnostic Mammogram, [facility]. 03/13/2021 Bilateral Diagnostic Mammogram, [facility]. 03/21/2022 Bilateral MG 3D screening mammo w/cad, [facility]. Tissue Density: The breast tissue is heterogeneously dense. This may lower the sensitivity of mammography. Findings: Analyzed By CAD. Left breast surgical clip. There is no suspicious group of microcalcifications or new suspicious mass. Overall Assessment: Benign, BI-RAD 2 Management: Screening Mammogram of both breasts in [address] [facility] will attempt to contact patient to return for supplemental views and ultrasound if indicated. Patient should continue monthly self-breast exams. A clinical breast exam by your physician is recommended on an annual basis. This exam should not preclude additional follow-up of suspicious palpable abnormalities. Note on Mariya scores and lifetime risk: 1. A Mariya score greater than 3% is considered moderate risk. If this is the case, consider specialist referral to assess eligibility for a risk reducing agent. 2. If overall lifetime risk for the development of breast cancer is 20% or higher, the patient may qualify for future screening with alternating mammogram and breast MRI. Electronically signed and approved by: Murphy Kumar DO
== END | disposition home or self-care (01) ==
LOC: RADMAMWWP 07:49
PROVIDERS: ATTEND Surgery
DX: Z12.31 Encounter for screening mammogram for malignant neoplasm of breast (principal); Z80.3 Family history of malignant neoplasm of breast; Z78.0 Asymptomatic menopausal state
CPT/HCPCS: 77063; 77067

== ENCOUNTER → 2024-07-02 | Outpatient (CLI) | payer BC ==
--- NOTE | 2024-07-06 16:16 | MM ---
Reason for Exam: Screening (asymptomatic). Last screening mammogram was performed 12 month(s) ago. Patient History: Menarche at age 11. First Full-Term at age 15. Left ovary removed at age 47. Right ovary removed at age 47. Hysterectomy at age 47. Postmenopausal. 07/2012, Cyst Aspiration. 2020, Excisional Biopsy on the Left side. 05/25/2015, Benign Cyst Aspiration on the left side. Sister had breast cancer, age 40. Risk Values: Mariya 5 year model risk: 3.7%. NCI Lifetime model risk: 12.8%. Prior Study Comparison: 03/13/2021 Bilateral Diagnostic Mammogram, [facility]. 03/21/2022 Bilateral MG 3D screening mammo w/cad, [facility]. 06/25/2023 Bilateral MG 3D screening mammo w/cad, [facility]. Tissue Density: The breasts are heterogeneously dense, which may obscure small masses. Findings: Analyzed By CAD. Lateral focal asymmetry left breast middle depth appears more pronounced and incompletely disperses on 3-D images. Further evaluation recommended. Medial asymmetric density anterior left cc view is unchanged. Surgical clips left breast from prior excision. Overall Assessment: Incomplete: need additional imaging evaluation, BI-RAD 0 Management: Special View Mammogram of the left breast. [facility] will attempt to contact patient to return for supplemental views and ultrasound if indicated. See note below in regards to patient's increased 5 year Mariya score. Note on Mariya scores and lifetime risk: 1. A Mariya score greater than 3% is considered moderate risk. If this is the case, consider specialist referral to assess eligibility for a risk reducing agent. 2. If overall lifetime risk for the development of breast cancer is 20% or higher, the patient may qualify for future screening with alternating mammogram and breast MRI. [facility], , 07/06/2024 4:13 PM. Electronically signed and approved by: Torito Patricio M.D. Radiologist
== END | disposition home or self-care (01) ==
LOC: RADMAMWWP 14:37
PROVIDERS: ATTEND Family Medicine
DX: Z12.31 Encounter for screening mammogram for malignant neoplasm of breast (principal); Z78.0 Asymptomatic menopausal state; Z80.3 Family history of malignant neoplasm of breast; Z90.722 Acquired absence of ovaries, bilateral; R92.333 Mammographic heterogeneous density, bilateral breasts
CPT/HCPCS: 77063; 77067

== ENCOUNTER → 2024-07-21 | Outpatient (CLI) | payer BC ==
--- NOTE | 2024-07-21 10:18 | MM ---
Reason for Exam: Additional evaluation requested from abnormal screening. Last screening mammogram was performed less than 1 month ago. Patient History: Menarche at age 11. First Full-Term at age 15. Left ovary removed at age 47. Right ovary removed at age 47. Hysterectomy at age 47. Postmenopausal. 07/2012, Cyst Aspiration. 2020, Excisional Biopsy on the Left side. 05/25/2015, Benign Cyst Aspiration on the left side. Sister had breast cancer, age 40. Risk Values: Mariya 5 year model risk: 3.7%. NCI Lifetime model risk: 12.8%. Prior Study Comparison: 03/21/2022 Bilateral MG 3D screening mammo w/cad, [facility]. 06/25/2023 Bilateral MG 3D screening mammo w/cad, [facility]. 07/02/2024 Bilateral MG 3D screening mammo w/cad, [facility]. Tissue Density: Left: The breasts are heterogeneously dense, which may obscure small masses. Findings: Analyzed By CAD. Left breast biopsy clip. No new suspicious masses, calcifications or distortions. Overall Assessment: Benign, BI-RAD 2 Management: Screening Mammogram of both breasts in 1 year. Results were given to the patient verbally at the time of exam. Patient should continue monthly self-breast exams. A clinical breast exam by your physician is recommended on an annual basis. This exam should not preclude additional follow-up of suspicious palpable abnormalities. Note on Mariya scores and lifetime risk: 1. A Mariya score greater than 3% is considered moderate risk. If this is the case, consider specialist referral to assess eligibility for a risk reducing agent. 2. If overall lifetime risk for the development of breast cancer is 20% or higher, the patient may qualify for future screening with alternating mammogram and breast MRI. [facility], , 07/21/2024 10:15 AM. Electronically signed and approved by: Murphy Kumar DO
== END | disposition home or self-care (01) ==
LOC: RADMAMWWP 09:48
PROVIDERS: ATTEND Family Medicine
DX: R92.8 Other abnormal and inconclusive findings on diagnostic imaging of breast (principal); R92.333 Mammographic heterogeneous density, bilateral breasts; Z78.0 Asymptomatic menopausal state; Z80.3 Family history of malignant neoplasm of breast; Z90.722 Acquired absence of ovaries, bilateral
CPT/HCPCS: 77061; 77065